=== PATIENT | male | born 1950 | race Caucasian/White ===

== ENCOUNTER 2016-06-16 13:30 | Emergency (ER) | payer BC, MEDICARE ==
[2016-06-16] MEDS ORDERED: Sodium Chloride 0.9% 10 ML Syringe FLUSH PRN (13:34)
[2016-06-16] MEDS ORDERED: Labetalol 100 MG/20 ML MDV IVPUSH ONE ×3 (13:36→14:20)
[2016-06-16] MEDS ORDERED: Labetalol 100 MG/20 ML MDV ONE (13:38)
--- NOTE | 2016-06-16 13:45 | CT ---
Head CT Technique: Multiple axial sections through the brain were obtained. Intravenous contrast was not utilized. Comparison: No previous study. Findings: Ventricles longer basal cisterns and sulci over convexities are within normal limits for the patient's age. There is an area of hemorrhage being seen within the brainstem. This hemorrhage measures approximately 1.9 cm in greatest dimension. Hemorrhage is mostly within the henry to the midline and to the left of midline. No other areas of hemorrhage are seen. Minimal diminished density noted within portions of the periventricular white matter compatible with small vessel ischemic demyelination change. No other abnormal parenchymal densities are seen. Visualized sinuses shows minimal mucosal thickening within the left ethmoid sinus. No acute calvarial abnormality is seen. Impression: 1. Brainstem hemorrhage as described above. 2. Minimal senescent change. Diagnostic code #5
--- NOTE | 2016-06-16 14:15 | EDM.PDOC ---
ED HPI NEURO - General Chief Complaint: Neuro Symptoms/Deficits Stated Complaint: [facility] Time Seen by Provider: 06/16/16 13:36 Source of Information: Reports: Patient, EMS, Family History Limitations: Reports: No limitations - History of Present Illness INITIAL COMMENTS - FREE TEXT/NARRATIVE: The patient was at work today and they were doing a tour of a site and his co- workers noticed that he was off balance and weak. He also had some trouble speaking. They called 911 and when EMS arrived, they noticed he had mild right arm and right leg weakness and he had some trouble speaking with some slurred speech and trouble finding his words. He has no medical problems. His said he did not feel normal this weekend. He has no headache, chest pain, shortness of breath, fever or chills. Timing/Duration: Reports: Hour(s): (12 mountain time) Location (Neuro Complaint): Reports: upper extremity, right, lower extremity, right Quality (Neuro Complaint): Reports: weakness Severity: mild Improves with: Reports: None Worsens with: Reports: None Context, General: Reports: Activity (He was walking around when this started) Associated Symptoms: Reports: weakness. Denies: headaches, shortness of breath , fever/chills, nausea/vomiting - Related Data Allergies/ADRs: Allergies Allergy/AdvReac Type Severity Reaction Status Date / Time No Known Allergies Allergy Verified 06/16/16 13:49 Home Meds: Home Meds . [No Known Home Meds] 06/16/16 [History] ED ROS GENERAL - Review of Systems Review Of Systems: See Below Constitutional: Reports: no symptoms HEENT: Reports: No symptoms Respiratory: Reports: No Symptoms Cardiovascular: Reports: No symptoms Endocrine: Reports: no symptoms GI/Abdominal: Reports: No symptoms : Reports: no symptoms Musculoskeletal: Reports: no symptoms Skin: Reports: no symptoms Neurological: Reports: Trouble Speaking, Weakness. Denies: Headache ED EXAM, NEURO - Physical Exam Exam: See Below Exam Limited By: No limitations General Appearance: alert, no apparent distress Ears: normal external exam Nose: normal inspection Head Exam: atraumatic, normocephalic Neck: normal inspection Respiratory/Chest: no respiratory distress, lungs clear, normal breath sounds Cardiovascular: regular rate, rhythm, no edema, no murmur GI/Abdominal: soft, non tender, no organomegaly, no mass Neurological: alert, oriented x 3, other (Mild weakness to his right hand, arm and leg. Abnormal finger to nose with the right hand. He has trouble finding some words and he has some slurred speech. He gets frustrated when trying to talk at times.) Back Exam: normal inspection Extremities: normal inspection Skin Exam: Warm, Dry EKG INTERPRETATION EKG Date: 06/16/16 Time: 13:34 Rhythm: NSR Rate (beats/min): 59 [place]: normal P-wave: present QRS: normal ST-T: normal QT: normal EKG Interpretation Comments: LVH and Q waves in the anterior leads. Course - Vital Signs Last Recorded V/S: Last Vital Signs Temp 98.3 F 06/16/16 13:50 Pulse 59 L 06/16/16 14:22 Resp 18 06/16/16 13:50 BP 210/113 H 06/16/16 14:22 Pulse Ox 94 L 06/16/16 13:50 - Orders/Labs/Meds Orders: Active Orders 24 hr Category Date Time Status Cardiac Monitoring [RC] . DIRECTED Care 06/16/16 13:34 Active EKG Documentation Completion [RC] STAT Care 06/16/16 13:35 Active Oxygen Therapy [RC] PRN Care 06/16/16 13:34 Active Peripheral IV Care [RC] . DIRECTED Care 06/16/16 13:35 Active Chest 1V Frontal [CR] Stat Exams 06/16/16 13:36 Taken Sodium Chloride 0.9% [Saline Flush] Med 06/16/16 13:34 Active 10 ml FLUSH ASDIRECTED PRN Peripheral IV Insertion Adult [OM.PC] Stat Oth 06/16/16 13:34 Ordered Medication Orders Sodium Chloride (Saline Flush) 10 ml FLUSH ASDIRECTED PRN PRN Reason: Keep Vein Open Last Admin: 06/16/16 14:04 Dose: 10 ml Labs: Laboratory Tests 06/16/16 06/16/16 06/16/16 Range/Units 13:35 13:39 13:39 WBC 10.21 H (4.23-9.07) K/mm3 RBC 4.94 (4.63-6.08) M/mm3 Hgb 14.8 (13.7-17.5) gm/L Hct 42.9 (40.1-51.0) % MCV 86.8 (79.0-92.2) fl MCH 30.0 (25.7-32.2) pg MCHC 34.5 (32.2-35.5) g/dl RDW Std Deviation 40.9 (35.1-43.9) fL Plt Count 279 (163-337) K/mm3 MPV 9.8 (9.4-12.3) fl Neut % (Auto) 79.5 H (34.0-67.9) % Lymph % (Auto) 14.2 L (21.8-53.1) % [place] % (Auto) 5.3 (5.3-12.2) % Eos % (Auto) 0.4 L (0.8-7.0) Baso % (Auto) 0.4 (0.1-1.2) % Neut # (Auto) 8.12 H (1.78-5.38) K/mm3 Lymph # (Auto) 1.45 (1.32-3.57) K/mm3 [place] # (Auto) 0.54 (0.30-0.82) K/mm3 Eos # (Auto) 0.04 (0.04-0.54) K/mm3 Baso # (Auto) 0.04 (0.01-0.08) K/mm3 PT 10.5 (8.0-13.0) SECONDS INR 0.97 APTT 25 (22-36) SECONDS Sodium (136-145) mEq/L Potassium (3.5-5.1) mEq/L Chloride (98-107) mEq/L Carbon Dioxide (21-32) mEq/L Anion Gap (5-15) BUN (7-18) mg/dL Creatinine (0.7-1.3) mg/dL Est Cr Clr Drug Dosing mL/min Estimated GFR (MDRD) (>60) mL/min BUN/Creatinine Ratio (14-18) Glucose (80-115) mg/dL POC Glucose 142 H (80-115) mg/dL Calcium (8.5-10.1) mg/dL Total Bilirubin (0.2-1.0) mg/dL AST (15-37) U/L ALT (16-63) U/L Alkaline Phosphatase (46-116) U/L Troponin I (0.00-0.056) ng/mL Total Protein (6.4-8.2) g/dl Albumin (3.4-5.0) g/dl Globulin gm/dL Albumin/Globulin Ratio (1-2) 06/16/16 Range/Units 13:39 WBC (4.23-9.07) K/mm3 RBC (4.63-6.08) M/mm3 Hgb (13.7-17.5) gm/L Hct (40.1-51.0) % MCV (79.0-92.2) fl MCH (25.7-32.2) pg MCHC (32.2-35.5) g/dl RDW Std Deviation (35.1-43.9) fL Plt Count (163-337) K/mm3 MPV (9.4-12.3) fl Neut % (Auto) (34.0-67.9) % Lymph % (Auto) (21.8-53.1) % [place] % (Auto) (5.3-12.2) % Eos % (Auto) (0.8-7.0) Baso % (Auto) (0.1-1.2) % Neut # (Auto) (1.78-5.38) K/mm3 Lymph # (Auto) (1.32-3.57) K/mm3 [place] # (Auto) (0.30-0.82) K/mm3 Eos # (Auto) (0.04-0.54) K/mm3 Baso # (Auto) (0.01-0.08) K/mm3 PT (8.0-13.0) SECONDS INR APTT (22-36) SECONDS Sodium 140 (136-145) mEq/L Potassium 3.9 (3.5-5.1) mEq/L Chloride 104 (98-107) mEq/L Carbon Dioxide 27 (21-32) mEq/L Anion Gap 12.9 (5-15) BUN 17 (7-18) mg/dL Creatinine 1.4 H (0.7-1.3) mg/dL Est Cr Clr Drug Dosing 56.03 mL/min Estimated GFR (MDRD) 51 (>60) mL/min BUN/Creatinine Ratio 12.1 L (14-18) Glucose 144 H (80-115) mg/dL POC Glucose (80-115) mg/dL Calcium 9.4 (8.5-10.1) mg/dL Total Bilirubin 0.5 (0.2-1.0) mg/dL AST 21 (15-37) U/L ALT 52 (16-63) U/L Alkaline Phosphatase 78 (46-116) U/L Troponin I < 0.017 (0.00-0.056) ng/mL Total Protein 8.0 (6.4-8.2) g/dl Albumin 4.1 (3.4-5.0) g/dl Globulin 3.9 gm/dL Albumin/Globulin Ratio 1.1 (1-2) Meds: Medications Generic Name Dose Route Start Last Admin Trade Name Freq PRN Reason Stop Dose Admin Sodium Chloride 10 ml 06/16/16 13:34 06/16/16 14:04 Saline Flush FLUSH 10 ml ASDIRECTED PRN Administration Keep Vein Open Discontinued Medications Generic Name Dose Route Start Last Admin Trade Name Freq PRN Reason Stop Dose Admin Labetalol HCl 20 mg 06/16/16 13:36 06/16/16 13:35 Normodyne IVPUSH 06/16/16 13:37 20 mg ONETIME ONE Administration Protocol Labetalol HCl Confirm 06/16/16 13:38 06/16/16 14:04 Normodyne Administered 06/16/16 13:39 Not Given Dose 100 mg .ROUTE .STK-MED ONE Labetalol HCl 40 mg 06/16/16 13:55 06/16/16 13:58 Normodyne IVPUSH 06/16/16 13:56 40 ml ONETIME ONE Administration Protocol Labetalol HCl 40 mg 06/16/16 14:20 06/16/16 14:22 Normodyne IVPUSH 06/16/16 14:21 40 ml ONETIME ONE Administration Protocol - Re-Assessments/Exams Free Text/Narrative Re-Assessment/Exam: 06/16/16 14:17 A stroke alert was called. The patient was rapidly assessed by me and went to the CT scanner. The CT showed a brainstem hemorrhage that was 1.9cm. His BP was high at 205 systolic. I ordered labetalol 20mg IV. I called [facility] in [place] and talked with the neurosurgeon Dr Lara and he accepted the patient. He wanted his blood pressure around 160 systolic. His BP was 196 systolic so I ordered labetalol 40mg IV. His BP went back up to 210. I ordered another 40mg of labetalol. 06/16/16 14:36 His labs look good. His BP went down to 186/118. I will try some hydralazine 10mg IV. The flight team is here to package the patient. Departure - Departure Time of Disposition: 14:40 Disposition: DC/Tfer to Acute Hospital 02 Condition: serious Clinical Impression: Brainstem hemorrhage Qualifiers: Intracerebral hemorrhage etiology: nontraumatic Laterality: unspecified laterality Qualified Code(s): I61.3 - Nontraumatic intracerebral hemorrhage in brain stem Hypertension Qualifiers: Hypertension type: essential hypertension Qualified Code(s): I10 - Essential ( primary) hypertension Forms: ED Department Discharge - My Orders Last 24 Hours: My Active Orders 06/16/16 13:34 Cardiac Monitoring [RC] . DIRECTED Oxygen Therapy [RC] PRN Sodium Chloride 0.9% [Saline Flush] 10 ml FLUSH ASDIRECTED PRN Peripheral IV Insertion Adult [OM.PC] Stat 06/16/16 13:35 EKG Documentation Completion [RC] STAT Peripheral IV Care [RC] . DIRECTED 06/16/16 13:36 Chest 1V Frontal [CR] Stat - Assessment/Plan Last 24 Hours: My Active Orders 06/16/16 13:34 Cardiac Monitoring [RC] . DIRECTED Oxygen Therapy [RC] PRN Sodium Chloride 0.9% [Saline Flush] 10 ml FLUSH ASDIRECTED PRN Peripheral IV Insertion Adult [OM.PC] Stat 06/16/16 13:35 EKG Documentation Completion [RC] STAT Peripheral IV Care [RC] . DIRECTED 06/16/16 13:36 Chest 1V Frontal [CR] Stat
[2016-06-16 14:38] VITALS: BP 210/113
[2016-06-16] MEDS ORDERED: hydrALAZINE 20 MG/ML SDV IVPUSH ONE (14:38)
--- NOTE | 2016-06-16 14:40 | CR ---
Chest: Portable view of the chest was obtained. Comparison: No previous study. Heart has a mild left ventricular configuration. Tortuous thoracic aorta is seen. Lungs are clear. Old healed left clavicle fracture is incidentally noted. Bony structures are otherwise grossly intact. Impression: 1. Incidental findings as described above. Nothing acute is identified on portable chest x-ray. Diagnostic code #1
[2016-06-16] MEDS ORDERED: hydrALAZINE 20 MG/ML SDV ONE (14:49)
== END 2016-06-16 14:49 ==
LOC: JD.ED 13:30
DX: I61.3 Nontraumatic intracerebral hemorrhage in brain stem (principal); I10 Essential (primary) hypertension
CPT/HCPCS: 36415; 70450; 71010; 80053; 82962; 84484; 85025; 85610; 85730; 93005; 96361; 96374; 96375; 99285; J7050